=== PATIENT | female | born 1975 | race Two or more races ===

== ENCOUNTER 2019-02-23 16:37 | Emergency (ER) | payer MEDICARE, MEDICAID ==
[2019-02-23] MEDS ORDERED: LEVETIRACETAM 1000 MG/NACL-ISO 1,000 MG/100 ML RTUPB IV ONE (16:56)
[2019-02-23] MEDS ORDERED: LORAZEPAM INJ 2 MG/1 ML VIAL IV ONE (16:56)
[2019-02-23 16:57] LABS: ABSOLUTE LYMPHOCYTES (AUTO) 0.9 10^3/uL (0.5-4.7); ABSOLUTE MONOCYTES (AUTO) 0.4 10^3/uL (0.1-1.4); ABSOLUTE NEUT (AUTO) 6.3 10^3/uL (1.7-8.2); BASOPHILS % (AUTO) 0.3 % (0-2); EOSINOPHILS % (AUTO) 0.1 % (0-6); HEMATOCRIT 32.1 % (36.0-47.0); LYMPHOCYTES % (AUTO) 11.7 % (13-45); MEAN CORPUSCULAR HEMOGLOBIN 34.3 pg (27.0-33.4); MEAN CORPUSCULAR HGB CONC 34.3 g/dL (32.0-36.0); MEAN CORPUSCULAR VOLUME 100 fl (80-97); MONOCYTES % (AUTO) 5.6 % (3-13); PLATELET COUNT 184 10^3/uL (150-450); RED BLOOD COUNT 3.21 10^6/uL (3.72-5.28); RED CELL DISTRIBUTION WIDTH 15.4 % (11.5-14.0); SEGMENTED NEUTROPHILS % (AUTO) 82.3 % (42-78); TOTAL CELLS COUNTED % (AUTO) 100 %; WHITE BLOOD COUNT 7.7 10^3/uL (4.0-10.5)
[2019-02-23] MEDS ORDERED: NORMAL SALINE 1000 ML 1,000 ML IV ONE (17:13)
[2019-02-23 17:16] LABS: ALBUMIN 4.8 g/dL (3.5-5.0); ALKALINE PHOSPHATASE 70 U/L (38-126); ANION GAP 18 (5-19); ASPARTATE AMINO TRANSFERASE 25 U/L (14-36); BILIRUBIN,DIRECT 0.1 mg/dL (0.0-0.4); BILIRUBIN,TOTAL 0.7 mg/dL (0.2-1.3); BLOOD UREA NITROGEN 15 mg/dL (7-20); CALCIUM 9.4 mg/dL (8.4-10.2); CARBON DIOXIDE 16 mmol/L (22-30); CHLORIDE 111 mmol/L (98-107); GLUCOSE 134 mg/dL (75-110); POTASSIUM 4.1 mmol/L (3.6-5.0); TOTAL PROTEIN 7.8 g/dL (6.3-8.2)
[2019-02-23 17:18] LABS: ALCOHOL < 10 mg/dL (NONE DETECTED)
--- NOTE | 2019-02-23 20:20 | EKG REPORT ---
SEVERITY:- OTHERWISE NORMAL ECG - SINUS TACHYCARDIA LA ABNORMALITY : Confirmed by: Scott Syed MD 23-Feb-2019 20:20:16
[2019-02-23 20:57] VITALS: BP 117/93
--- NOTE | 2019-02-23 22:56 | ER Document Report ---
Entered by JADA MUNIZ SCRIBE 02/23/19 1714 Acting as scribe for:BIANKA BOOKER DO ED General - General Chief Complaint: Probable Seizure Stated Complaint: POSSIBLE SEIZURE Time Seen by Provider: 02/23/19 17:08 Primary Care Provider: EARL QUINN PA-C [Primary Care Provider] - Follow up tomorrow Mode of Arrival: Medic Information source: Emergency Med Personnel Cannot obtain history due to: Other Notes: This 43 year old female patient presents to the emergency department today with complaints of a seizure while at her primary care office, Earl Quinn at [facility]. According to EMS, the patient was at his office to get a refill on Keppra, as she had been out for two days. EMS reports that they were told that prior to their arrival the patient was having a "full tonic clonic seizure". History is limited as the patient provides no history. TRAVEL OUTSIDE OF THE [place] IN LAST 30 DAYS: No - Related Data Allergies/Adverse Reactions: No Known Allergies Allergy (Unverified 02/23/19 20:57) Past Medical History - General Information source: Emergency Med Personnel, [facility] Records Cannot obtain history due to: Other - Social History Smoking Status: Unknown if Ever Smoked Cigarette use (# per day): No Frequency of alcohol use: None Drug Abuse: None Lives with: Family Family History: Reviewed & Not Pertinent Patient has suicidal ideation: No Patient has homicidal ideation: No Neurological Medical History: Reports: Hx Seizures Review of Systems - Review of Systems -: Yes ROS unobtainable due to patient's medical condition Physical Exam - Vital signs Vitals: Resp 18 02/23/19 16:39 Interpretation: Tachycardic - General General appearance: Alert In distress: Mild - HEENT Head: Normocephalic, Atraumatic Eyes: Normal Pupils: PERRL - Respiratory Respiratory status: No respiratory distress Chest status: Nontender Breath sounds: Normal Chest palpation: Normal - Cardiovascular Rhythm: Regular Heart sounds: Normal auscultation Murmur: No - Abdominal Inspection: Normal Distension: No distension Bowel sounds: Normal Tenderness: Nontender Organomegaly: No organomegaly - Back Back: Normal, Nontender - Extremities General upper extremity: Normal inspection, Nontender, Normal color, Normal ROM, Normal temperature General lower extremity: Normal inspection, Nontender, Normal color, Normal ROM, Normal temperature, Normal weight bearing. No: Santy's sign - Neurological Neuro grossly intact: Yes Cognition: Normal Orientation: AAOx4 [place] Coma Scale Eye Opening: Spontaneous [place] Coma Scale Verbal: Oriented [place] Coma Scale Motor: Obeys Commands Marcus Coma Scale Total: 15 Speech: Normal Motor strength normal: LUE, RUE, LLE, RLE Sensory: Normal - Psychological Associated symptoms: Anxious, Tearful - Skin Skin Temperature: Warm Skin Moisture: Dry Skin Color: Normal Course - Re-evaluation Re-evalutation: 02/23/19 Patient is a 43-year-old female with a history of seizures who was witnessed to have a seizure at her clinic. Patient comes in appearing postictal. No acute findings on blood work except for a low CO2 which is consistent with recent seizure activity. Patient is supposed to be in Keppra but has not taken it for the last 3 days. Loaded with Keppra here in the emergency department will be discharged home with a prescription for her usual dose. She is to follow-up with her doctor. Of note, patient came in tachycardic that is resolved after fluids. Taking p.o. Feels better would like to go home. Stable for discharge. - Vital Signs Vital signs: Temp Pulse Resp BP Pulse Ox 98.1 F 20 117/93 H 98 02/23/19 20:41 02/23/19 20:41 02/23/19 20:41 02/23/19 20:41 - Laboratory Result Diagrams: 02/23/19 16:40 02/23/19 16:40 Laboratory results interpreted by me: 02/23/19 02/23/19 02/23/19 16:40 16:40 16:50 RBC 3.21 L Hgb 11.0 L Hct 32.1 L MCV 100 H MCH 34.3 H RDW 15.4 H Lymph % (Auto) 11.7 L Seg Neutrophils % 82.3 H Chloride 111 H Carbon Dioxide 16 L Glucose 134 H POC Glucose 134 H Discharge - Discharge Clinical Impression: Seizure Condition: Stable Disposition: HOME, SELF-CARE Instructions: Seizure, Known Epileptic ([facility]) Prescriptions: Levetiracetam [Keppra] 750 mg PO BID #60 tablet Referrals: EARL QUINN PA-C [Primary Care Provider] - Follow up tomorrow I personally performed the services described in the documentation, reviewed and edited the documentation which was dictated to the scribe in my presence, and it accurately records my words and actions.
== END 2019-02-23 20:58 | disposition home or self-care (01) ==
LOC: ER 16:37
DX: G40.909 Epilepsy, unspecified, not intractable, without status epilepticus (principal)
CPT/HCPCS: 93005; 36415; 82962; 80307; 83735; 84703; 85025; 80053; 84484; 93010; J2060; J7030; J1953; 96361; 96365; 96375; 99284